=== PATIENT | female | born 1955 | race Caucasian/White ===

== ENCOUNTER 2017-07-14 06:10 | Inpatient (IN) | payer BC ==
[~2017-07-14] VITALS: Ht 170.2 cm; Wt 83.7 kg
[~2017-07-14 06:10] MED LIST: ADVIL200 MG PO; ASPIRIN EC325 MG PO; CALCIUM + D TA1 EACH PO; CALMAG THINS T1 EACH PO; CLOPIDOGREL75 MG PO; FLONASE16 G1 BOTH NARES; FLUOXETINE HCL40 MG PO; LEVOTHROID,S0.075 MG PO; LEVOTHYROXINE112 MCG PO; LO-DOSE ASPIRIN81 M1 PO; LOPID600 MG; Levothroid,Synthroid PO; Lopid PO; NITROSTAT0.4 MG SL; PANTOPRAZOLE SO40 MG PO; PLAVIX75 MG PO; PROAIR HFA8.5 GM IH; PROZAC10 MG PO; PROZAC40 MG PO; SALINE NASAL SP45 ML BOTH NARES; SIMVASTATIN40 MG PO; SIMVASTATIN5 MG PO; UNITHROID300 MCG PO; VITAMIN B-12250 MCG PO; ZADITOR 0.100 DROP/5 BOTH EYES; ZOFRAN4 MG PO; ZYRTEC10 M3 PO
[2017-07-14 06:55] LABS: BASOPHIL (%) 0.7 % (0-1); EOSINOPHIL (%) 2.9 % (0-5); EOSINOPHIL COUNT 0.2 K/uL (0-0.3); HEMATOCRIT 42.2 % (36.0-46.0); HEMOGLOBIN 14.1 G/DL (11.9-15.5); IMMATURE GRANULOCYTE (%) 0.3 % (0.0-0.7); LYMPHOCYTE (%) 35.4 % (15-42); LYMPHOCYTE COUNT 2.1 K/uL (1.0-2.8); MCH 28.7 PG (29.0-34.0); MCHC 33.4 G/DL (30.0-36.0); MCV 85.8 FL (83-99); MONOCYTE (%) 10.7 % (3-12); MONOCYTE COUNT 0.6 K/uL (0-0.8); NEUTROPHIL COUNT 2.9 K/uL (1.8-6.4); PLATELET COUNT 168 K/uL (156-360); RBC DIS.WIDTH-CV 13.2 % (11.8-14.6); RBC DIS.WIDTH-SD 41.1 % (39-53); RED BLOOD COUNT 4.92 M/uL (3.80-5.20); WHITE BLOOD COUNT 5.9 K/uL (4.1-10.2)
[2017-07-14 07:23] LABS: TROP-I INTERPRETATION NEGATIVE; TROPONIN-I 0.04 ng/mL (0.0-0.30)
[2017-07-14 07:24] LABS: CHLORIDE 107 MEQ/L (99-109); CREATININE 0.8 MG/DL (0.6-1.3); GFR ESTIMATE (CALCULATED) > 59 mL/min/; GLUCOSE 131 mg/dL (70-99); POTASSIUM 4.4 MEQ/L (3.7-5.4); SODIUM 139 MEQ/L (136-147); UREA NITROGEN (BUN) 15 mg/dL (9-23)
[2017-07-14 10:04] LABS: TROP-I INTERPRETATION NEGATIVE; TROPONIN-I 0.07 ng/mL (0.0-0.30)
[2017-07-14] MEDS ORDERED: RANITIDINE HCL300 MG PO (11:35)
[2017-07-14] MEDS ORDERED: RABEPRAZOLE SOD20 MG PO (11:35)
[2017-07-14] MEDS ORDERED: GLUCOPHAGE500 MG PO (11:36)
[2017-07-14 14:15] LABS: TROP-I INTERPRETATION NEGATIVE; TROPONIN-I 0.05 ng/mL (0.0-0.30)
[2017-07-14 17:07] VITALS: BP 124/98
[2017-07-14 19:00] VITALS: BP 140/63
[2017-07-14 19:23] LABS: TROP-I INTERPRETATION NEGATIVE; TROPONIN-I 0.06 ng/mL (0.0-0.30)
[2017-07-15] VITALS (30 sets, daily range): BP systolic 122–169; BP diastolic 64–110
[2017-07-15 05:37] LABS: HEMATOCRIT 40.7 % (36.0-46.0); HEMOGLOBIN 13.4 G/DL (11.9-15.5); MCHC 32.9 G/DL (30.0-36.0); MCV 85.1 FL (83-99); PLATELET COUNT 172 K/uL (156-360); RBC DIS.WIDTH-SD 40.5 % (39-53); RED BLOOD COUNT 4.78 M/uL (3.80-5.20); WHITE BLOOD COUNT 5.9 K/uL (4.1-10.2)
[2017-07-15 06:02] LABS: CHLORIDE 104 MEQ/L (99-109); CREATININE 0.8 MG/DL (0.6-1.3); GFR ESTIMATE (CALCULATED) > 59 mL/min/; GLUCOSE 127 mg/dL (70-99); POTASSIUM 4.1 MEQ/L (3.7-5.4); SODIUM 137 MEQ/L (136-147); UREA NITROGEN (BUN) 15 mg/dL (9-23)
[2017-07-16] VITALS (8 sets, daily range): BP systolic 120–161; BP diastolic 57–99
[2017-07-16 05:21] LABS: BASOPHIL (%) 0.4 % (0-1); EOSINOPHIL (%) 1.8 % (0-5); EOSINOPHIL COUNT 0.1 K/uL (0-0.3); HEMATOCRIT 42.4 % (36.0-46.0); IMMATURE GRANULOCYTE (%) 0.1 % (0.0-0.7); LYMPHOCYTE (%) 30.7 % (15-42); LYMPHOCYTE COUNT 2.2 K/uL (1.0-2.8); MCH 27.9 PG (29.0-34.0); MCV 84.6 FL (83-99); MONOCYTE (%) 9.1 % (3-12); MONOCYTE COUNT 0.6 K/uL (0-0.8); NEUTROPHIL (%) 57.9 % (45-76); NEUTROPHIL COUNT 4.1 K/uL (1.8-6.4); PLATELET COUNT 176 K/uL (156-360); RBC DIS.WIDTH-CV 13.3 % (11.8-14.6); RED BLOOD COUNT 5.01 M/uL (3.80-5.20)
[2017-07-16 05:51] LABS: CHLORIDE 102 MEQ/L (99-109); CREATININE 0.9 MG/DL (0.6-1.3); GFR ESTIMATE (CALCULATED) > 59 mL/min/; GLUCOSE 115 mg/dL (70-99); MAGNESIUM 2.1 mg/dl (1.3-2.7); POTASSIUM 4.3 MEQ/L (3.7-5.4); SODIUM 136 MEQ/L (136-147); UREA NITROGEN (BUN) 18 mg/dL (9-23)
[2017-07-16] MEDS ORDERED: NITROSTAT0.4 MG SL (09:32)
[2017-07-16] MEDS ORDERED: CLOPIDOGREL75 MG PO (09:33)
[2017-07-16] MEDS ORDERED: ATORVASTATIN CA80 MG PO (09:33)
[2017-07-16] MEDS ORDERED: ASPIRIN EC325 MG PO (09:33)
[2017-07-16] MEDS ORDERED: METOPROLOL SUCC50 MG PO (09:33)
[2017-07-16 10:03] LABS: HEMOGLOBIN A1c (GLYCOHEMOGLOB) 6.5 % (Below 5.7)
== END 2017-07-16 11:08 | disposition home or self-care (01) | DRG 247 ==
LOC: EME → EDBD 06:10 → EDOF 11:52 → 4WEST 11:52 → EDOF 11:52 → ENRESERV 11:57 → EDOF 12:05 → ENRESERV 14:36 → 5WEST 17:01 → ENRESERV 07-15 11:22 → 5WEST 07-15 11:40 → ENRESERV 07-15 13:31 → 4WEST 07-15 13:32
PROVIDERS: Emergency Medicine; Internal Medicine; Internal Medicine Interventional Cardiology
DX: T82.855A Stenosis of coronary artery stent, initial encounter (principal); I25.110 Atherosclerotic heart disease of native coronary artery with unstable angina pectoris; Y83.1 Surgical operation with implant of artificial internal device as the cause of abnormal reaction of the patient, or of later complication, without mention of misadventure at the time of the procedure; I34.0 Nonrheumatic mitral (valve) insufficiency; I10 Essential (primary) hypertension; E78.5 Hyperlipidemia, unspecified; R73.03 Prediabetes; K21.9 Gastro-esophageal reflux disease without esophagitis; F32.9 Major depressive disorder, single episode, unspecified; E03.9 Hypothyroidism, unspecified; Z85.71 Personal history of Hodgkin lymphoma
CPT/HCPCS: 71045; 71260; 80048; 82948; 83036; 83735; 84484; 85025; 85027; 85347; 87641; 93005; 99281; 99285; C1725; C1769; C1874; C1887; G0378; J1644; J1650; J1885; J2250; J3010

== ENCOUNTER 2017-11-07 15:27 | Observation (INO) | payer BC ==
[~2017-11-07] VITALS: Ht 167.6 cm; Wt 83.8 kg
[~2017-11-07 15:27] MED LIST changes: +ATORVASTATIN CA80 MG PO; +GLUCOPHAGE500 MG PO; +METOPROLOL SUCC50 MG PO; +RABEPRAZOLE SOD20 MG PO; +RANITIDINE HCL300 MG PO
[2017-11-07 16:12] LABS: HEMATOCRIT 38.4 % (36.0-46.0); HEMOGLOBIN 13.1 G/DL (11.9-15.5); MCH 29.4 PG (29.0-34.0); MCHC 34.1 G/DL (30.0-36.0); MCV 86.1 FL (83-99); PLATELET COUNT 166 K/uL (156-360); RBC DIS.WIDTH-SD 43.8 % (39-53); RED BLOOD COUNT 4.46 M/uL (3.80-5.20); WHITE BLOOD COUNT 8.7 K/uL (4.1-10.2)
[2017-11-07 16:23] LABS: ALBUMIN 3.6 g/dL (3.2-4.8); CHLORIDE 110 mEq/L (99-109); POTASSIUM 3.9 mEq/L (3.7-5.4); SODIUM 143 mEq/L (136-147)
[2017-11-07 16:25] LABS: GLUCOSE 94 mg/dL (70-99); TOTAL PROTEIN 6.1 g/dL (6.4-8.3)
[2017-11-07 16:27] LABS: TOTAL BILIRUBIN 0.6 mg/dL (0.0-1.0)
[2017-11-07 16:29] LABS: ALKALINE PHOSPHATASE 106 IU/L (3-129); CREATININE 0.9 mg/dL (0.6-1.3); GFR ESTIMATE (CALCULATED) > 59 mL/min/
[2017-11-07 16:30] LABS: UREA NITROGEN (BUN) 22 mg/dL (9-23)
[2017-11-07 16:31] LABS: AST (GOT) 25 IU/L (2-34)
[2017-11-07 16:32] LABS: ALT (GPT) 46 IU/L (3-49); CREATINE KINASE 201 IU/L (1-294); TOTAL CK 201 IU/L (1-294)
[2017-11-07 16:38] LABS: CK-MB 5.1 ng/mL (0.0-4.9); CKMB RELATIVE INDEX 2.5 (0.0-3.9); TROP-I INTERPRETATION NEGATIVE; TROPONIN-I 0.02 ng/mL (0.0-0.30)
[2017-11-07] MEDS ORDERED: PLAVIX75 MG PO (18:54)
[2017-11-07] MEDS ORDERED: LITE COAT ASPI325 M1 PO (18:54)
[2017-11-07] MEDS ORDERED: DOXYCYCLINE MO100 M1 PO (18:59)
[2017-11-07 20:30] VITALS: BP 184/92
[2017-11-07 21:52] VITALS: BP 168/80
[2017-11-07 22:22] LABS: TROP-I INTERPRETATION NEGATIVE; TROPONIN-I < 0.01 ng/mL (0.0-0.30)
[2017-11-07 23:10] VITALS: BP 170/93
[2017-11-08 04:19] VITALS: BP 137/73
[2017-11-08 05:40] LABS: HEMATOCRIT 40.9 % (36.0-46.0); HEMOGLOBIN 13.3 G/DL (11.9-15.5); MCH 28.1 PG (29.0-34.0); MCHC 32.5 G/DL (30.0-36.0); MCV 86.5 FL (83-99); PLATELET COUNT 167 K/uL (156-360); RBC DIS.WIDTH-SD 44.3 % (39-53); RED BLOOD COUNT 4.73 M/uL (3.80-5.20); WHITE BLOOD COUNT 7.4 K/uL (4.1-10.2)
[2017-11-08 06:00] LABS: TROP-I INTERPRETATION NEGATIVE; TROPONIN-I 0.03 ng/mL (0.0-0.30)
[2017-11-08 06:42] LABS: CHLORIDE 108 MEQ/L (99-109); CREATININE 0.7 MG/DL (0.6-1.3); GFR ESTIMATE (CALCULATED) > 59 mL/min/; GLUCOSE 128 mg/dL (70-99); POTASSIUM 3.8 MEQ/L (3.7-5.4); SODIUM 139 MEQ/L (136-147); UREA NITROGEN (BUN) 18 mg/dL (9-23)
[2017-11-08] MEDS ORDERED: IMDUR60 MG PO (11:38)
[2017-11-08] MEDS ORDERED: DILTIAZEM 24HR120 MG PO (11:38)
[2017-11-09] MEDS ORDERED: NAPROSYN500 MG PO (10:18)
[2017-11-09] MEDS ORDERED: FLEXERIL10 MG PO (10:18)
[2017-11-09] MEDS ORDERED: LIDODERM 5% P1 PATCH TD (10:18)
== END 2017-11-08 13:26 | disposition home or self-care (01) ==
LOC: EME 15:27 → EDOF 18:36 → 4SOUTH 18:36 → EDOF 18:36 → ENRESERV 18:48 → 4SOUTH 20:25
PROVIDERS: Emergency Medicine; Hospitalist
DX: R07.9 Chest pain, unspecified (principal); I25.10 Atherosclerotic heart disease of native coronary artery without angina pectoris; I10 Essential (primary) hypertension; E78.5 Hyperlipidemia, unspecified; R73.01 Impaired fasting glucose; E03.9 Hypothyroidism, unspecified; Z85.79 Personal history of other malignant neoplasms of lymphoid, hematopoietic and related tissues; Z95.5 Presence of coronary angioplasty implant and graft; R94.31 Abnormal electrocardiogram [ECG] [EKG]; Z82.49 Family history of ischemic heart disease and other diseases of the circulatory system; Z83.3 Family history of diabetes mellitus; Z88.0 Allergy status to penicillin; Z88.1 Allergy status to other antibiotic agents; Z88.5 Allergy status to narcotic agent; Z88.6 Allergy status to analgesic agent; Z88.8 Allergy status to other drugs, medicaments and biological substances
CPT/HCPCS: 71046; 80048; 80053; 82550; 82553; 83880; 84484; 85027; 93005; 99202; 99281; 99285; G0378; J1644

== ENCOUNTER 2017-11-09 07:29 | Emergency (ER) | payer BC ==
[~2017-11-09] VITALS: Ht 167.6 cm; Wt 85.9 kg
[~2017-11-09 07:29] MED LIST changes: +DILTIAZEM 24HR120 MG PO; +DOXYCYCLINE MO100 M1 PO; +IMDUR60 MG PO; +LITE COAT ASPI325 M1 PO
[2017-11-09 07:55] LABS: HEMATOCRIT 39.6 % (36.0-46.0); MCH 28.7 PG (29.0-34.0); MCHC 32.8 G/DL (30.0-36.0); MCV 87.4 FL (83-99); PLATELET COUNT 179 K/uL (156-360); RBC DIS.WIDTH-CV 14.5 % (11.8-14.6); RBC DIS.WIDTH-SD 46.2 % (39-53); RED BLOOD COUNT 4.53 M/uL (3.80-5.20); WHITE BLOOD COUNT 8.6 K/uL (4.1-10.2)
[2017-11-09 08:04] LABS: CHLORIDE 104 mEq/L (99-109); POTASSIUM 4.3 mEq/L (3.7-5.4); SODIUM 138 mEq/L (136-147)
[2017-11-09 08:06] LABS: GLUCOSE 163 mg/dL (70-99)
[2017-11-09 08:10] LABS: GFR ESTIMATE (CALCULATED) 48 mL/min/
[2017-11-09 08:11] LABS: CREATININE 1.2 mg/dL (0.6-1.3); UREA NITROGEN (BUN) 30 mg/dL (9-23)
[2017-11-09 08:28] LABS: ALBUMIN 3.5 g/dL (3.2-4.8)
[2017-11-09 08:31] LABS: TOTAL PROTEIN 6.5 g/dL (6.4-8.3)
[2017-11-09 08:32] LABS: TOTAL BILIRUBIN 0.6 mg/dL (0.0-1.0)
[2017-11-09 08:33] LABS: ALKALINE PHOSPHATASE 123 IU/L (3-129)
[2017-11-09 08:36] LABS: AST (GOT) 29 IU/L (2-34); DIRECT BILIRUBIN 0.2 mg/dL (0.0-0.3)
[2017-11-09 08:37] LABS: ALT (GPT) 44 IU/L (3-49)
[2017-11-09] MEDS ORDERED: NAPROSYN500 MG PO (10:18)
[2017-11-09] MEDS ORDERED: FLEXERIL10 MG PO (10:18)
[2017-11-09] MEDS ORDERED: LIDODERM 5% P1 PATCH TD (10:18)
[2017-11-09 10:39] VITALS: BP 100/54
== END 2017-11-09 10:41 | disposition home or self-care (01) ==
LOC: EME 07:29
DX: M94.0 Chondrocostal junction syndrome [Tietze] (principal); Z87.09 Personal history of other diseases of the respiratory system; Z92.89 Personal history of other medical treatment; R00.1 Bradycardia, unspecified; I44.0 Atrioventricular block, first degree; K21.9 Gastro-esophageal reflux disease without esophagitis; E78.5 Hyperlipidemia, unspecified; E03.9 Hypothyroidism, unspecified; I25.2 Old myocardial infarction; I25.10 Atherosclerotic heart disease of native coronary artery without angina pectoris; F41.9 Anxiety disorder, unspecified; F32.9 Major depressive disorder, single episode, unspecified; Z79.82 Long term (current) use of aspirin; Z79.02 Long term (current) use of antithrombotics/antiplatelets; Z95.5 Presence of coronary angioplasty implant and graft; Z87.442 Personal history of urinary calculi; Z85.71 Personal history of Hodgkin lymphoma; Z90.49 Acquired absence of other specified parts of digestive tract; Z88.6 Allergy status to analgesic agent; Z88.5 Allergy status to narcotic agent; Z88.1 Allergy status to other antibiotic agents; Z88.0 Allergy status to penicillin; Z88.8 Allergy status to other drugs, medicaments and biological substances
CPT/HCPCS: 71046; 80048; 80076; 85027; 93005; 99281; 99284

== ENCOUNTER 2017-11-23 08:15 | Day surgery (SDC) | payer BC ==
[~2017-11-23] VITALS: Ht 167.6 cm; Wt 85.8 kg
[~2017-11-23 08:15] MED LIST changes: +ASPIRIN81 M2 PO; +BRILINTA90 MG PO; +FLEXERIL10 MG PO; +FLUOXETINE HCL20 MG PO; +LEVOTHYROXINE75 MCG PO; +LIDODERM 5% P1 PATCH TD; +NAPROSYN500 MG PO; +RANEXA500 MG PO; +STOOL SOFTENER100 MG PO
[2017-11-23] MEDS ORDERED: PLAVIX75 MG PO (09:23)
[2017-11-23 14:10] VITALS: BP 173/99
[2017-11-23 14:33] VITALS: BP 173/99
[2017-11-23 16:15] VITALS: BP 154/84
[2017-11-23 19:40] VITALS: BP 124/76
[2017-11-23 23:19] VITALS: BP 134/96
[2017-11-24 03:30] VITALS: BP 174/83
[2017-11-24 06:17] VITALS: BP 149/83
[2017-11-24 06:17] LABS: BASOPHIL (%) 0.7 % (0-1); EOSINOPHIL (%) 3.4 % (0-5); EOSINOPHIL COUNT 0.2 K/uL (0-0.3); HEMATOCRIT 38.7 % (36.0-46.0); HEMOGLOBIN 12.8 G/DL (11.9-15.5); IMMATURE GRANULOCYTE (%) 0.3 % (0.0-0.7); LYMPHOCYTE (%) 28.4 % (15-42); LYMPHOCYTE COUNT 1.7 K/uL (1.0-2.8); MCH 28.1 PG (29.0-34.0); MCHC 33.1 G/DL (30.0-36.0); MCV 84.9 FL (83-99); MONOCYTE COUNT 0.5 K/uL (0-0.8); NEUTROPHIL (%) 58.2 % (45-76); NEUTROPHIL COUNT 3.4 K/uL (1.8-6.4); PLATELET COUNT 196 K/uL (156-360); RBC DIS.WIDTH-SD 43.1 % (39-53); RED BLOOD COUNT 4.56 M/uL (3.80-5.20); WHITE BLOOD COUNT 5.9 K/uL (4.1-10.2)
[2017-11-24 06:36] LABS: CHLORIDE 105 MEQ/L (99-109); CREATININE 0.8 MG/DL (0.6-1.3); GFR ESTIMATE (CALCULATED) > 59 mL/min/; GLUCOSE 146 mg/dL (70-99); POTASSIUM 3.9 MEQ/L (3.7-5.4); SODIUM 137 MEQ/L (136-147); UREA NITROGEN (BUN) 12 mg/dL (9-23)
[2017-11-24 08:25] VITALS: BP 136/60
[2017-11-24 11:25] VITALS: BP 129/77
== END 2017-11-24 13:07 | disposition home or self-care (01) ==
LOC: CATH 08:15 → 2SOUTH 11:45 → ENRESERV 12:10 → 4EAST 14:05
PROVIDERS: Internal Medicine Cardiovascular Disease
DX: I25.110 Atherosclerotic heart disease of native coronary artery with unstable angina pectoris (principal); T82.855A Stenosis of coronary artery stent, initial encounter; I10 Essential (primary) hypertension; E78.5 Hyperlipidemia, unspecified; E03.9 Hypothyroidism, unspecified; Z79.82 Long term (current) use of aspirin; Z79.02 Long term (current) use of antithrombotics/antiplatelets; Z95.5 Presence of coronary angioplasty implant and graft; Z82.49 Family history of ischemic heart disease and other diseases of the circulatory system; Z85.72 Personal history of non-Hodgkin lymphomas; Z88.0 Allergy status to penicillin; Z88.1 Allergy status to other antibiotic agents; Z88.5 Allergy status to narcotic agent; Z88.6 Allergy status to analgesic agent; Z88.8 Allergy status to other drugs, medicaments and biological substances
CPT/HCPCS: 80048; 85025; 85347; 93005; 94799; C1725; C1760; C1769; C1887; C1894; G0378; J0461; J0583; J1644; J2250; J3010; J7030; J7050